=== PATIENT | female | born 1965 | race African-American/Black ===

== ENCOUNTER 2021-08-14 12:56 | Emergency (ER) | payer OTHER ==
[~2021-08-14] VITALS: Ht 182.9 cm; Wt 117.9 kg
== END 2021-08-14 14:00 | disposition home or self-care (01) ==
LOC: FSED 13:07
DX: S20.219A Contusion of unspecified front wall of thorax, initial encounter (principal); M25.512 Pain in left shoulder; V53.5XXA Driver of pick-up truck or van injured in collision with car, pick-up truck or van in traffic accident, initial encounter; Y92.488 Other paved roadways as the place of occurrence of the external cause
CPT/HCPCS: 71046; 99282